=== PATIENT | male | born 1985 | race Caucasian/White ===

== ENCOUNTER 2018-10-22 09:47 | Emergency (ER) | payer OTHER ==
[~2018-10-22] VITALS: Ht 182.9 cm; Wt 69.1 kg
[2018-10-22 09:58] VITALS: BP 122/86
--- NOTE | 2018-10-22 10:30 | NUR ---
PT WAS SPLASHES IN THE EYE BY A PT WITH BLOOD.
== END 2018-10-22 11:16 | disposition home or self-care (01) ==
LOC: ER 09:48
DX: Z77.21 Contact with and (suspected) exposure to potentially hazardous body fluids (principal); Z88.0 Allergy status to penicillin; Z88.8 Allergy status to other drugs, medicaments and biological substances
CPT/HCPCS: 99281